=== PATIENT | female | born 1945 | race Caucasian/White ===

== ENCOUNTER 2021-05-16 09:48 | Outpatient (CLI) | payer MEDICARE | END 2021-05-16 09:49 | disposition home or self-care (01) | LOC: CSHMAMMO 09:48 | PROVIDERS: ATTEND Internal Medicine | DX: Z12.31 Encounter for screening mammogram for malignant neoplasm of breast (principal) | CPT/HCPCS: 77063; 77067 ==

== ENCOUNTER 2021-10-06 09:19 | Outpatient (CLI) | payer MEDICARE | END 2021-10-06 09:20 | disposition home or self-care (01) | LOC: CSHMAMMO 09:19 | PROVIDERS: ATTEND Internal Medicine | DX: Z13.820 Encounter for screening for osteoporosis (principal); Z78.0 Asymptomatic menopausal state; M85.851 Other specified disorders of bone density and structure, right thigh | CPT/HCPCS: 77080 ==

== ENCOUNTER 2025-02-16 11:45 | Outpatient (CLI) | payer MEDICARE | END 2025-02-16 11:46 | disposition home or self-care (01) | LOC: CSHMRI 11:45 | PROVIDERS: ATTEND Student in an Organized Health Care Education/Training Program | DX: Z01.818 Encounter for other preprocedural examination (principal); M70.62 Trochanteric bursitis, left hip; Z95.0 Presence of cardiac pacemaker; M16.12 Unilateral primary osteoarthritis, left hip; S76.012A Strain of muscle, fascia and tendon of left hip, initial encounter | CPT/HCPCS: 71046; 72195 ==